=== PATIENT | female | born 1985 | race Caucasian/White ===

== ENCOUNTER 2019-12-12 14:47 | Outpatient (REF) | payer OTHER, SELFPAY ==
--- NOTE | 2019-12-12 16:45 | MHC.AU.P13 ---
Adult Audiological Evaluation Date of Visit: 12/12/19 Reason for Appointment: Hearing re-evaluation to monitor the status of her hearing loss. She denies any significant changes to her hearing but notes she still continues to have difficulties. Only change to medical history is patient reports she is 5 weeks . Previous Hearing Test Results: [facility] [place] - Normal hearing in the right ear. Mild low-frequency mixed hearing loss in the left ear. Medical History: Medical History: Migraines Medical History: Left Tympanic Membrane perforation at age 16/17, caused by trauma from jumping into a swimming pool. Ulcerative colitis. Allergies: NSAIDS, Imuran, doxy Otoscopy: Right Ear: Unremarkable Left Ear: Unremarkable Tympanometry: Right Ear: Normal Middle Ear System (Type A) Left Ear: Hypercompliant Middle Ear System (Type Ad) Hearing Evaluation: Transducer(s) Used: Insert Earphones, Bone Conduction Method: Conventional Audiometry Stimuli Used: Pure Tones Right Ear: Description of Hearing: Normal hearing from 250-8000 Hz. Left Ear: Description of Hearing: Mild conductive hearing loss 250-500 Hz, mild sensorineural hearing loss 1000 Hz, mild conductive hearing loss at 2000 Hz, rising to normal hearing from 7824-0648 Hz. Speech Recognition Threshold (SRT): Method Used: Monitored Live Voice Stimuli Used: Spondee Words Right Ear: 15 dBHL Left Ear: 20 dBHL Word Discrimination: Method: Recorded Lists Word Lists Used: NU-6 Right Ear: 100% at 55 dBHL Left Ear: 100% at 60 dBHL Comparison: Compared to the most recent evaluation: Hearing is stable. Recommendations: Recommendations: Audiological re-evaluation in one year. Amplification is not warranted at this time. Referral to Ear, Nose, and Throat is recommended. Diagnosis: Primary Diagnosis: H90.72 Mixed HL, Unilateral, Left Ear, W/Unrestricted Contralateral Services Performed: Services Performed: Comprehensive Audiological Evaluation (CPT 03244) Tympanometry (CPT 86601) Signature: Provider: Willis Jordan, CCC-A
== END 2019-12-12 14:48 | disposition home or self-care (01) ==
LOC: HO.SH 14:47
PROVIDERS: PCP Internal Medicine; Visit Provider Internal Medicine
DX: H90.72 Mixed conductive and sensorineural hearing loss, unilateral, left ear, with unrestricted hearing on the contralateral side (principal)
CPT/HCPCS: 92557; 92567